=== PATIENT | female | born 1990 | race Caucasian/White ===

== ENCOUNTER 2020-09-26 22:05 | Emergency (ER) | payer OTHER ==
[~2020-09-26] VITALS: Ht 162.6 cm; Wt 63.5 kg
[2020-09-26 22:15] VITALS: BP 130/71
--- NOTE | 2020-09-26 22:27 | PHYS DOC ---
Adult General Chief Complaint Chief Complaint: FACE PAIN HPI HPI Patient is an otherwise healthy 30-year-old female who presents with left-sided nasal congestion for day. States she is here visiting and has some congestion with feelings of fullness and pressure. Denies any recent fevers, changes in vision, cough, sore throat, chest pain, shortness of breath, abdominal pain, nausea, vomiting, diarrhea. Denies any other Covid/flu/cold symptoms. States she is eating and drinking normally for her. States he is making urine and stool normally for her. States she tried some ibuprofen earlier which gave minimal relief. Has not tried any other medications. Review of Systems Review of Systems Review of systems otherwise unremarkable except noted in HPI Current Medications Current Medications Current Medications Medications (Trade) Dose Ordered Sig/Ji Start Time Stop Time Status Last Admin Dose Admin Acetaminophen (Tylenol) 1,000 mg 1X ONCE 09/26/20 22:30 09/26/20 22:31 UNV Diphenhydramine HCl (Benadryl) 25 mg 1X ONCE 09/26/20 22:30 09/26/20 22:31 UNV Oxymetazoline HCl (Afrin) 2 spray 1X ONCE 09/26/20 22:30 09/26/20 22:31 UNV Allergies Allergies Allergies Coded Allergies Type Severity Reaction Last Updated Verified No Known Drug Allergies 09/26/20 No Physical Exam Physical Exam Constitutional: Well developed, well nourished, no acute distress, non-toxic appearance. [] HENT: Normocephalic, atraumatic, bilateral external ears normal, oropharynx moist, no oral exudates, nasal congestion] Eyes: conjunctiva normal, no discharge. [] Neck: Normal range of motion, no tenderness, supple, no stridor. [] Cardiovascular:Heart rate regular rhythm, no murmur [] Lungs & Thorax: Bilateral breath sounds clear to auscultation [] Extremities: No tenderness, ROM intact, no edema. [] Neurologic: Alert and oriented X 3, normal motor function, normal sensory function, able to sit, stand and walk without issue no focal deficits noted. [] Psychologic: Affect normal, judgement normal, mood normal. [] EKG EKG [] Radiology/Procedures Radiology/Procedures [] Heart Score C/O Chest Pain: No Risk Factors: Risk Factors: DM, Current or recent (<one month) smoker, HTN, HLP, family history of CAD, obesity. Risk Scores: Risk Factors: DM, Current or recent (<one month) smoker, HTN, HLP, family history of CAD, obesity. Course & Med Decision Making Course & Med Decision Making Patient is 30-year-old female who presents with a day of nasal congestion Signs not concerning. Physical exam noted above. Given ibuprofen, Benadryl and Afrin. Discussed all findings with patient and recommended [id number] symptom control. Advised to call primary care physician in the morning to update on ED visit and set up a follow-up. Gave strict return precautions to the ED. Patient grateful, verbalized understanding and agreed with plan of discharge. [] Dragon Disclaimer Dragon Disclaimer This electronic medical record was generated, in whole or in part, using a voice recognition dictation system. Departure Departure: Impression: Primary Impression: Nasal congestion Disposition: HOME / SELF CARE / HOMELESS Condition: GOOD Referrals: KENDAL MEEK MD Patient Instructions: Sinus Headache, Sinusitis, Viral Syndrome Additional Instructions: Thank you for coming into the emergency department tonight and allowing us to take care of you. Please read all the attached information very carefully to go back over what we discussed. You can begin these Tylenol, ibuprofen, Benadryl and Afrin as we discussed for symptom control. Please follow-up in the morning with your primary care physician to set up a follow-up visit. Please come back to the ED with new or concerning symptoms as discussed. DANILO HANCOCK MD Sep 26, 2020 22:27
[2020-09-26] MEDS ORDERED: diphenhydrAMINE HCL 25 MG CAPSULE PO ONE (23:00)
[2020-09-26] MEDS ORDERED: ACETAMINOPHEN 500 MG TABLET PO ONE (23:00)
[2020-09-26] MEDS ORDERED: OXYMETAZOLINE 0.05% NASAL SPRAY 30ML BOTTLE. NS ONE (23:00)
== END 2020-09-26 23:00 | disposition home or self-care (01) ==
LOC: ER 22:05
DX: R09.81 Nasal congestion (principal)
CPT/HCPCS: 99284; Q0163